=== PATIENT | male | born 1960 | race Caucasian/White ===

== ENCOUNTER 2016-11-01 13:31 | Inpatient (IN) | payer MEDICARE, OTHER ==
[~2016-11-01] VITALS: Ht 180.3 cm; Wt 110.3 kg
[2016-11-01 14:35] LABS: HEMOGLOBIN 17.6 gm/dl (14.0-17.5); RED BLOOD COUNT 5.7 M/UL (4.20-5.50)
[2016-11-01 14:54] LABS: BUN/CREATININE RATIO 11 (0-10)
[2016-11-01] MEDS ORDERED: ASPIR 8181 MG PO (21:34)
[2016-11-01] MEDS ORDERED: PLAVIX 75 MG TA75 MG PO (21:34)
[2016-11-01] MEDS ORDERED: ZESTRIL/PRINIVI10 MG PO (21:35)
[2016-11-01] MEDS ORDERED: CRESTOR10 MG PO (21:35)
[2016-11-01] MEDS ORDERED: SPIRIVA RESPIMAT4 GM INH (21:37)
[2016-11-01] MEDS ORDERED: ADVAIR 250-501 EACH INH (21:37)
[2016-11-01] MEDS ORDERED: COMBIVENT0.074 GM/I INH (21:38)
[2016-11-01] MEDS ORDERED: NITROSTAT 0.40.4 MG SL (21:39)
[2016-11-01] MEDS ORDERED: VENTOLIN/PROVE0.5 ML INH (21:40)
[2016-11-02 04:00] LABS: HEMOGLOBIN 17.3 gm/dl (14.0-17.5); RED BLOOD COUNT 5.6 M/UL (4.20-5.50); WHITE BLOOD COUNT 12.1 K/UL (4.5-11.0)
[2016-11-02 04:02] LABS: BUN/CREATININE RATIO 18 (0-10)
[2016-11-04 03:15] LABS: BUN/CREATININE RATIO 29 (0-10)
[2016-11-04] MEDS ORDERED: CEFDINIR300 MG PO (17:38)
[2016-11-04] MEDS ORDERED: LOPRESSOR 25 MG25 MG PO (21:35)
[2017-04-28] MEDS ORDERED: PLAVIX 75 MG TA75 MG PO (20:27)
[2017-04-28] MEDS ORDERED: ASPIRIN CHEWABL81 MG PO (20:28)
[2017-04-28] MEDS ORDERED: LOPRESSOR50 MG PO (20:39)
[2017-04-28] MEDS ORDERED: LISINOPRIL10 MG PO (20:40)
[2017-04-28] MEDS ORDERED: CRESTOR10 MG PO (20:40)
[2017-04-28] MEDS ORDERED: SPIRIVA RESPIMAT4 GM INH (20:41)
[2017-04-28] MEDS ORDERED: NITROSTAT 0.40.4 MG SL (20:41)
[2017-04-28] MEDS ORDERED: COMBIVENT0.074 GM/I INH (20:42)
[2017-04-28] MEDS ORDERED: ADVAIR HFA 230/1 INH INH (20:44)
[2017-04-28] MEDS ORDERED: VENTOLIN/PROVE0.5 ML INH (20:44)
[2017-04-28] MEDS ORDERED: METFORMIN HCL1000 M1 PO (20:45)
[2017-04-28] MEDS ORDERED: PREDNISONE10 MG PO (20:45)
== END 2016-11-04 18:31 | disposition home or self-care (01) | DRG 189 ==
LOC: ER1 13:31 → M/S 18:06 → ZEROF 18:06 → M/S 20:36
PROVIDERS: Emergency Medicine; Hospitalist; ADMIT Family Medicine
DX: J96.21 Acute and chronic respiratory failure with hypoxia (principal); J44.1 Chronic obstructive pulmonary disease with (acute) exacerbation; E87.1 Hypo-osmolality and hyponatremia; I25.10 Atherosclerotic heart disease of native coronary artery without angina pectoris; I10 Essential (primary) hypertension; E78.5 Hyperlipidemia, unspecified; K21.9 Gastro-esophageal reflux disease without esophagitis; M10.9 Gout, unspecified; Z95.5 Presence of coronary angioplasty implant and graft; Z87.891 Personal history of nicotine dependence; Z82.3 Family history of stroke; Z82.49 Family history of ischemic heart disease and other diseases of the circulatory system
CPT/HCPCS: 36415; 36600; 71020; 80048; 80053; 82550; 82553; 82803; 82962; 83874; 83880; 84484; 85025; 87040; 93005; 94640; 94664; 96374; 99285; J0456; J0696; J1650; J2930; J7030; J7050; J7509

== ENCOUNTER → 2017-01-04 | Outpatient (CLI) | payer OTHER ==
[~2017-01-04] MED LIST: ADVAIR 250-501 EACH INH; ADVAIR HFA 230/1 INH INH; ASPIR 8181 MG PO; ASPIRIN CHEWABL81 MG PO; CEFDINIR300 MG PO; COMBIVENT0.074 GM/I INH; CRESTOR10 MG PO; LISINOPRIL10 MG PO; LOPRESSOR 25 MG25 MG PO; LOPRESSOR50 MG PO; METFORMIN HCL1000 M1 PO; NITROSTAT 0.40.4 MG SL; PLAVIX 75 MG TA75 MG PO; PREDNISONE10 MG PO; SPIRIVA RESPIMAT4 GM INH; VENTOLIN/PROVE0.5 ML INH; ZESTRIL/PRINIVI10 MG PO
== END ==
LOC: HEART 5 14:04
DX: J44.9 Chronic obstructive pulmonary disease, unspecified (principal); Z87.891 Personal history of nicotine dependence
CPT/HCPCS: 94060; 94729

== ENCOUNTER → 2017-01-04 | Outpatient (CLI) | payer OTHER ==
[2017-01-04 16:17] LABS: BUN/CREATININE RATIO 20 (0-10)
== END ==
LOC: LAB 15:03
PROVIDERS: Internal Medicine Interventional Cardiology
DX: E78.5 Hyperlipidemia, unspecified (principal)
CPT/HCPCS: 36415; 80053; 80061

== ENCOUNTER → 2017-01-12 | Outpatient (CLI) | payer MEDICARE, OTHER | LOC: CARD REHAB 12:59 | DX: J44.9 Chronic obstructive pulmonary disease, unspecified (principal) ==

== ENCOUNTER 2022-03-27 08:47 | Emergency (ER) | payer MEDICARE, OTHER ==
[~2022-03-27 08:47] MED LIST changes: +ALBUTEROL2.5 MG/3 M INH; +BRILINTA 90 MG90 MG PO; +CRESTOR20 MG PO; +ELIQUIS5 MG PO; +IMDUR ER TAB 3030 MG PO; +MULTAQ 400 MG400 MG PO; +OMNICEF 300 MG300 MG PO; +OXYGEN; +PROTONIX40 MG PO
[2022-03-27 09:24] LABS: HEMOGLOBIN 17.2 gm/dl (14.0-17.5); RED BLOOD COUNT 5.57 M/UL (4.20-5.50); WHITE BLOOD COUNT 13.3 K/UL (4.5-11.0)
[2022-03-27 09:43] LABS: BUN/CREATININE RATIO 22 (0-10)
[2022-03-27 12:21] LABS: BUN/CREATININE RATIO 20 (0-10)
== END 2022-03-27 14:15 | disposition home or self-care (01) ==
LOC: ER1 08:47
PROVIDERS: Emergency Medicine
DX: E11.65 Type 2 diabetes mellitus with hyperglycemia (principal); I25.10 Atherosclerotic heart disease of native coronary artery without angina pectoris; I25.2 Old myocardial infarction; J44.9 Chronic obstructive pulmonary disease, unspecified
CPT/HCPCS: 71045; 80048; 80053; 81001; 82009; 82550; 82553; 82803; 82962; 84484; 85025; 96374; 99285